=== PATIENT | female | born 1935 | race Caucasian/White ===

== ENCOUNTER 2021-12-25 15:57 | Emergency (ER) | payer MEDICARE, MEDICAID, SELFPAY ==
--- NOTE | ~2021-12-25 | XR_ITS ---
EXAMINATION: XR CHEST CLINICAL INFORMATION: Cough. COMPARISON: None TECHNIQUE: Frontal view of the chest was obtained. FINDINGS: Prominent cardiomediastinal silhouette. Left-sided pacer with leads projecting over the right ventricle and right atrium. Mitral annular calcifications. Atherosclerotic disease of the aortic arch. Central vasculature engorgement suggesting pulmonary hypertension. No focal airspace opacities, pleural effusions or pneumothorax. No acute osseous abnormalities. The visualized upper abdomen is within normal limits. XR/XR chest 1V IMPRESSION: Enlarged cardiomediastinal silhouette and central vasculature engorgement suggesting cardiomegaly and pulmonary hypertension. No focal airspace opacities. Clear pleural spaces.
--- NOTE | ~2021-12-25 | CT_ITS ---
EXAMINATION: CT ANGIOGRAM OF THE CHEST WITH AND WITHOUT CONTRAST (CT PULMONARY ANGIOGRAM FOR PE) CLINICAL INFORMATION: Shortness of breath and cough. COMPARISON: Chest radiograph from earlier today TECHNIQUE: Prior to contrast administration, noncontrast localization images were obtained. Subsequently, multidetector volumetric imaging was performed from the thoracic inlet to below the diaphragms following the administration of 57 mL Omnipaque 350 intravenous contrast. No contrast reaction reported Sagittal, coronal, and MIP oblique sagittal reformatted images were obtained on the CT workstation, uploaded to PACS, and reviewed. This CT examination was performed using dose optimization techniques as appropriate, variously including the following: *Automated exposure control *Adjustment of mA and/or kV according to patient size (this includes techniques or standardized protocols for targeted exams where dose is matched to indication/reason for exam; i.e. extremities or head) *Use of iterative reconstruction technique Total exam dose-length product 156 mGy-cm FINDINGS: QUALITY OF STUDY/CONTRAST BOLUS: Satisfactory. PULMONARY ARTERIES: No central or segmental pulmonary emboli. The central pulmonary arteries are enlarged suggesting pulmonary hypertension. THORACIC AORTA: Atherosclerotic disease. The ascending thoracic aorta measures 3.5 cm in diameter. LUNG: Evaluation of parenchymal details and pulmonary nodules is limited due to respiratory motion. There is mild bronchial wall thickening, more noticeable in the lower lobes. There are subsegmental atelectasis in the right lower lobe. No dense consolidation. The central airways are patent. No pulmonary mass. Calcified granulomas are noted. PLEURA: No pleural effusion or pneumothorax. MEDIASTINUM: Cardiomegaly. No pericardial effusion. Coronary calcifications. No bulky mediastinal or hilar lymphadenopathy. No evidence of septal bowing or right heart strain. CHEST WALL/AXILLA: Left-sided pacer. No chest wall mass. No axillary lymphadenopathy by size criteria. OSSEOUS STRUCTURES: No acute or suspicious osseous abnormality. Thoracic spondylosis. UPPER ABDOMEN: Cholelithiasis. No reflux of contrast into the hepatic veins to suggest elevated right heart pressures. CT/CT angio chest PE protocol IMPRESSION: 1. No evidence of pulmonary embolism. 2. Mild bronchial wall thickening suggesting an infectious or inflammatory process of the small airways such as bronchitis, reactive airways disease or atypical/viral infections. 3. No focal consolidation, pleural effusion or pneumothorax. 4. Cardiomegaly with findings suggesting pulmonary hypertension. Triple-vessel coronary calcifications are noted. 5. Cholelithiasis. No findings to suspect acute cholecystitis. VTE: negative
[2021-12-25 16:53] VITALS: BP 174/70; PULSE 75; RESP 20; TEMP 37.6; O2SAT 98; BMI 24.7
[2021-12-25 17:40] LABS: Influenza A PCR NEGATIVE (Negative); Influenza B PCR NEGATIVE (Negative); Resp Syncy Virus RNA Qual PCR NEGATIVE (Negative); SARS COV2 PCR INHOUSE NEGATIVE (Negative)
--- NOTE | 2021-12-25 18:39 | ECG_ITS ---
Test Reason : DYSPNEA Blood Pressure : / mmHG Vent. Rate : 083 BPM Atrial Rate : 083 BPM P-R Int : 220 ms QRS Dur : 192 ms QT Int : 464 ms P-R-T Axes : 078 -76 095 degrees QTc Int : 545 ms Atrial-sensed ventricular-paced rhythm with prolonged AV conduction with occasional Premature atrial complexes Abnormal ECG No previous ECGs available Referred By: Sil Aragon Electronically Signed By:COLIN AU MD
[2021-12-25 18:43] VITALS: BP 169/66; PULSE 81; RESP 16; TEMP 37.8; O2SAT 97
--- NOTE | 2021-12-25 18:57 | ED.URI ---
HPI - URI/Sore Throat General Chief Complaint: Upper Respiratory Symptoms Stated Complaint: Cough Time Seen by Provider: 12/25/21 18:28 Source: patient Mode of arrival: ambulatory Limitations: language barrier (indonesian ) History of Present Illness HPI Narrative: Patient is a 86-year-old female with a past medical history of hypertension, dementia, high cholesterol and a ICD presenting with a cough and fever x2 weeks. Patient is with daughter. Patient endorses a dry cough, low-grade fever, chest pain associated a cough, decreased appetite and some shortness of breath. She denies headache, vision changes, nausea, vomiting, diarrhea, constipation, leg swelling, or rashes. Daughter states that she was sick about 2 weeks ago with a similar cough though states she took and at home COVID test which was negative. Daughter states that she has been giving her mother fluids, cold medication, Robitussin and Tylenol to control her symptoms. Daughter also notes that her mother has been having a teary right eye worse in the morning. Family memeber RSV + at home. Of note patient is on aspirin. MD elicited complaint: fever and cough Onset (ago): week(s) (2) Consistency: intermittent Severity: mild Able to tolerate fluids by mouth: Yes Context: sick contacts Associated symptoms: fever, cough, chest pain, shortness of breath and other ( red eye) Treatments prior to arrival: acetaminophen and cold medicine Related Data Previous Rx's Medication Instructions Recorded albuterol sulfate 90 mcg/actuation 2 inh inhalation Q4-6H PRN 12/25/21 breath activated powder inhaler shortness of breath or wheezing #1 ea azithromycin 250 mg tablet See Rx Instructions PO .COMPLEX #6 12/25/21 tabs prednisone 20 mg tablet 20 mg PO DAILY 5 days #5 tabs 12/25/21 sulfacetamide sodium 10 % eye drops 1 drp ophthalmic (eye) Q4H #5 mL 12/25/21 Allergies Allergy/AdvReac Type Severity Reaction Status Date / Time diphenhydramine Allergy Unknown Verified 12/25/21 16:57 [From Benadryl] Penicillins Allergy Unknown Verified 12/25/21 16:57 Review of Systems Review of Systems: Constitutional : No Weight loss, + Fever, + Chills, + Fatigue, + Malaise ENT/Mouth : No Hearing loss, No Ear Pain, No Nasal Congestion, No Sinus Pain, No Hoarseness, No sore throat, No Rhinorrhea, No Swallowing Difficulty Eyes: No Eye Pain, No Swelling, + Redness, No Foreign Body, + Discharge, No Vision Changes Cardiovascular : + Chest Pain, + SOB, + Dyspnea on Exertion, No Orthopnea, No Edema, No Palpitations Respiratory : + Cough, No Sputum, No Wheezing, Gastrointestinal : No Nausea, No Vomiting, No Diarrhea, No Constipation, No abdominal Pain, No Hematochezia, No Melena Genitourinary : no irregular bleeding, No Dysuria, No Urinary Frequency, No Hematuria, No Urinary Incontinence, No Urgency, No Flank Pain, No Urinary Flow Changes, No Hesitancy Musculoskeletal : No joint pain, No Myalgias, No Joint Swelling Skin : No Skin Lesions, No rash Neuro : No Weakness, No Numbness, No Paresthesias, No Loss of Consciousness, No Dizziness, No Headache Heme/Lymph: No Bruising, No Bleeding,No Lymphadenopathy Yes all other systems are reviewed and are negative [facility] Past Medical History Attestation statement: The following information was validated with the patient. Source: old records reviewed and nursing notes reviewed Social History Social History Advance Directives: No Advance Directives Information Provided: Yes Physical Exam Vital Signs: Vital Signs: Last Vital Signs Temp 100.1 F 12/25/21 18:43 Pulse 81 12/25/21 18:43 Resp 16 12/25/21 18:43 BP 169/66 H 12/25/21 18:43 Pulse Ox 97 12/25/21 18:43 O2 Del Method 12/25/21 18:43 BMI result Body Mass Index 24.7 vss Appearance: Alert and Oriented. No acute distress. No accessory muscle use Head: Normal external exam. Normocephalic. Atraumatic. ? Eyes: PERRLA. Conjunctiva and sclera normal of left eye. right eye with conjunctival injection with slight. Eyel amount of clear discharge. B/l lids normal. ? ENT: Pharynx normal. Uvula midline. Moist mucous membranes. ? No trismus noted.? No drooling noted.? No muffled voice noted. TM visualized landmarks noted - no signs of infection no erythema. Neck: ?Soft full range of motion, no JVD. No meningeal signs CVS: ?Heart regular rate and rhythm + murmur (chronic and known). No tenderness to palpation of anterior chest wall. Respiratory: ? Upper left lobe noted to have wheezing though became clear after coughing. Breath sounds are clear to auscultation bilaterally. No wheezing or stridor.? No accessory muscle use noted. Abdomen: ?Soft nontender no rebound or guarding positive bowel sounds Skin: Skin warm and dry.? Normal skin color.? Normal skin turgor. Extremities: No lower extremity edema. ? Extremities exhibit normal range of motion.? Extremities nontender. Negative [place] bilaterally. Neuro: Alert and oriented X3.? No motor deficit.? No sensory deficit.? Reflexes normal. Course Reevaluation(s) Reevaluation #1: CBC significant for leukocytosis of 12.3, likely bronchitis. Chemistry with no acute electrolyte abnormalities requiring intervention. Patient's transaminases and alk-phos noted to be slightly elevated however no pain with palpation to abdomen. Troponin 15.7, 2nd troponin ordered for 22:00, patient not complaining of chest pain or shortness of breath, therefore low suspicion for ACS or PE. BNP elevated at 258 however no signs of fluid overload on exam or chest x-ray. No need for diuretics at this time. Flu/COVID/RSV negative. D-dimer positive therefore CTA was ordered to rule out PE. Chest x-ray within enlarged cardiomediastinal silhouette and central vasculature engorgement suggesting cardiomegaly and pulmonary hypertension. Patient educated on findings and family members well. Time: 19:15 Reevaluation #2: CTA with no signs of PE. Mild bronchial wall thickening again consistent with bronchitis. Patient educated on these findings. Repeat troponin pending. Time: 21:10 Reevaluation #3: Troponin not meeting delta criteria, patient not complaining of chest pain or shortness of breath. EKG signed by my attending, case was discussed with my attending who agrees with my treatment, diagnosis and plan. Patient's likely diagnosis bronchitis. Advised to return with new or worsening symptoms. At this time I feel comfortable discharge home. At time of discharge patient's vital signs stable, patient feeling well, no chest pain or shortness of breath, oxygen saturations stable even after movement and ambulation. At this time patient will be discharged home with strict return precautions. MDM - URI/Sore Throat MDM Narrative Medical decision making narrative: 184 86-year-old female presenting with 2 weeks of a cough and low-grade fever. Patient had a close sick contacts with a similar URI. Physical Exam significant for a murmur auscultated (chronic finding), upper left lobe wheezing auscultated though cleared with coughing, and a fever of 100.1. PERC score of 1. Will rule out ACS, PE. Although most likely upper viral respiratory infection or bronchitis. Plan: Routine lab work: BNP, CBC, SARs-COVID/ flu/ RSV, EKG, Blood cultures, D-dimer, Troponin, Lactic acid Medical Records Attestation: I reviewed the patient's medical records. Lab Data Attestation: I reviewed the patient's lab results. Result diagrams: 12/25/21 19:05 12/25/21 19:05 Labs: Lab Results 12/25/21 12/25/21 12/25/21 Range/Units 16:59 19:05 19:05 WBC 12.3 H (4.8-10.8) X10*3/uL RBC 4.37 (4.20-5.50) X10*6/uL Hgb 14.4 (12.0-16.0) g/dl Hct 41.8 (37.0-47.0) % MCV 95.7 (80.0-98.0) fL MCH 33.0 (27.0-33.0) pg MCHC 34.4 (31.0-35.0) g/dl RDW 14.1 (11.0-16.0) % Plt Count 190 (160-400) X10*3/uL MPV 11.2 (9.4-12.3) fL Immature Gran % (Auto) 0.3 (0.0-0.4) % Neut % (Auto) 71.8 (45-73) % Lymph % (Auto) 14.1 L (20-40) % [place] % (Auto) 9.0 (2-11) % Eos % (Auto) 4.4 H (0-4) % Baso % (Auto) 0.4 (0-2) % Lymph # (Auto) 1.7 (1.2-4.9) X10*3/uL [place] # (Auto) 1.1 (0.1-1.2) X10*3/uL Eos # (Auto) 0.5 H (0.0-0.4) X10*3/uL Baso # (Auto) 0.1 (0.0-0.2) X10*3/uL Abs Immat Gran (auto) 0.04 H (0.00-0.03) X10*3/uL Absolute Neuts (auto) 8.9 H (2.0-8.3) x10*3/uL Absolute Nucleated RBC 0.000 (0.0-0.012) X10*3/uL Nucleated RBC % (auto) 0.0 (0.0-0.2) /100WBC D-Dimer High Sensitivty NG/ML Sodium 138 (135-145) mmol/L Potassium 3.7 (3.3-5.1) mmol/L Chloride 97 (96-108) mmol/L Carbon Dioxide 29 (22-29) mmol/L Anion Gap 16 (12-20) BUN 10 (9-16) mg/dL Creatinine 0.91 (0.5-1.4) mg/dL Estim Creat Clear Calc 41.2 Estimated GFR 59 Random Glucose 128 H (60-115) mg/dL Lactic Acid (0.5-2.0) mmol/L Calcium 9.9 (8.4-10.2) mg/dL Total Bilirubin 0.9 (0.0-1.0) mg/dL AST 55 H (5-31) U/L ALT 53 H (0-31) U/L Alkaline Phosphatase 232 H (39-117) U/L Troponin I High Sens (<3.5-17.0) ng/L B-Natriuretic Peptide (<100) pg/mL Total Protein 7.8 (6.5-8.0) g/dL Albumin 4.3 (3.5-5.0) g/dL Urine Color Urine Appearance Urine pH (5.0-9.0) Ur Specific [place] (1.005-1.025) Urine Protein (Neg-Trace) mg/dL Urine Glucose (UA) (Negative) mg/dL Urine Ketones (Negative) mg/dL Urine Blood (Negative) Urine Nitrite (Negative) Ur Leukocyte Esterase (Negative) COVID-19 (VANESA) (Negative) COVID-19 Clin Com Influenza Type A (PCR) NEGATIVE (Negative) Influenza Type B (PCR) NEGATIVE (Negative) RSV RNA Qual (PCR) NEGATIVE (Negative) SARS-CoV-2 RNA (RT-PCR) NEGATIVE (Negative) 12/25/21 12/25/21 12/25/21 Range/Units 19:05 19:05 19:05 WBC (4.8-10.8) X10*3/uL RBC (4.20-5.50) X10*6/uL Hgb (12.0-16.0) g/dl Hct (37.0-47.0) % MCV (80.0-98.0) fL MCH (27.0-33.0) pg MCHC (31.0-35.0) g/dl RDW (11.0-16.0) % Plt Count (160-400) X10*3/uL MPV (9.4-12.3) fL Immature Gran % (Auto) (0.0-0.4) % Neut % (Auto) (45-73) % Lymph % (Auto) (20-40) % [place] % (Auto) (2-11) % Eos % (Auto) (0-4) % Baso % (Auto) (0-2) % Lymph # (Auto) (1.2-4.9) X10*3/uL [place] # (Auto) (0.1-1.2) X10*3/uL Eos # (Auto) (0.0-0.4) X10*3/uL Baso # (Auto) (0.0-0.2) X10*3/uL Abs Immat Gran (auto) (0.00-0.03) X10*3/uL Absolute Neuts (auto) (2.0-8.3) x10*3/uL Absolute Nucleated RBC (0.0-0.012) X10*3/uL Nucleated RBC % (auto) (0.0-0.2) /100WBC D-Dimer High Sensitivty 519 NG/ML Sodium (135-145) mmol/L Potassium (3.3-5.1) mmol/L Chloride (96-108) mmol/L Carbon Dioxide (22-29) mmol/L Anion Gap (12-20) BUN (9-16) mg/dL Creatinine (0.5-1.4) mg/dL Estim Creat Clear Calc Estimated GFR Random Glucose (60-115) mg/dL Lactic Acid (0.5-2.0) mmol/L Calcium (8.4-10.2) mg/dL Total Bilirubin (0.0-1.0) mg/dL AST (5-31) U/L ALT (0-31) U/L Alkaline Phosphatase (39-117) U/L Troponin I High Sens (<3.5-17.0) ng/L B-Natriuretic Peptide 258 H (<100) pg/mL Total Protein (6.5-8.0) g/dL Albumin (3.5-5.0) g/dL Urine Color Urine Appearance Urine pH (5.0-9.0) Ur Specific [place] (1.005-1.025) Urine Protein (Neg-Trace) mg/dL Urine Glucose (UA) (Negative) mg/dL Urine Ketones (Negative) mg/dL Urine Blood (Negative) Urine Nitrite (Negative) Ur Leukocyte Esterase (Negative) COVID-19 (VANESA) Negative (Negative) COVID-19 Clin Com See Note Influenza Type A (PCR) (Negative) Influenza Type B (PCR) (Negative) RSV RNA Qual (PCR) (Negative) SARS-CoV-2 RNA (RT-PCR) (Negative) 12/25/21 12/25/21 12/25/21 Range/Units 19:05 19:05 21:35 WBC (4.8-10.8) X10*3/uL RBC (4.20-5.50) X10*6/uL Hgb (12.0-16.0) g/dl Hct (37.0-47.0) % MCV (80.0-98.0) fL MCH (27.0-33.0) pg MCHC (31.0-35.0) g/dl RDW (11.0-16.0) % Plt Count (160-400) X10*3/uL MPV (9.4-12.3) fL Immature Gran % (Auto) (0.0-0.4) % Neut % (Auto) (45-73) % Lymph % (Auto) (20-40) % [place] % (Auto) (2-11) % Eos % (Auto) (0-4) % Baso % (Auto) (0-2) % Lymph # (Auto) (1.2-4.9) X10*3/uL [place] # (Auto) (0.1-1.2) X10*3/uL Eos # (Auto) (0.0-0.4) X10*3/uL Baso # (Auto) (0.0-0.2) X10*3/uL Abs Immat Gran (auto) (0.00-0.03) X10*3/uL Absolute Neuts (auto) (2.0-8.3) x10*3/uL Absolute Nucleated RBC (0.0-0.012) X10*3/uL Nucleated RBC % (auto) (0.0-0.2) /100WBC D-Dimer High Sensitivty NG/ML Sodium (135-145) mmol/L Potassium (3.3-5.1) mmol/L Chloride (96-108) mmol/L Carbon Dioxide (22-29) mmol/L Anion Gap (12-20) BUN (9-16) mg/dL Creatinine (0.5-1.4) mg/dL Estim Creat Clear Calc Estimated GFR Random Glucose (60-115) mg/dL Lactic Acid 1.1 (0.5-2.0) mmol/L Calcium (8.4-10.2) mg/dL Total Bilirubin (0.0-1.0) mg/dL AST (5-31) U/L ALT (0-31) U/L Alkaline Phosphatase (39-117) U/L Troponin I High Sens 15.7 22.3 H (<3.5-17.0) ng/L B-Natriuretic Peptide (<100) pg/mL Total Protein (6.5-8.0) g/dL Albumin (3.5-5.0) g/dL Urine Color Urine Appearance Urine pH (5.0-9.0) Ur Specific [place] (1.005-1.025) Urine Protein (Neg-Trace) mg/dL Urine Glucose (UA) (Negative) mg/dL Urine Ketones (Negative) mg/dL Urine Blood (Negative) Urine Nitrite (Negative) Ur Leukocyte Esterase (Negative) COVID-19 (VANESA) (Negative) COVID-19 Clin Com Influenza Type A (PCR) (Negative) Influenza Type B (PCR) (Negative) RSV RNA Qual (PCR) (Negative) SARS-CoV-2 RNA (RT-PCR) (Negative) 12/25/21 Range/Units 21:35 WBC (4.8-10.8) X10*3/uL RBC (4.20-5.50) X10*6/uL Hgb (12.0-16.0) g/dl Hct (37.0-47.0) % MCV (80.0-98.0) fL MCH (27.0-33.0) pg MCHC (31.0-35.0) g/dl RDW (11.0-16.0) % Plt Count (160-400) X10*3/uL MPV (9.4-12.3) fL Immature Gran % (Auto) (0.0-0.4) % Neut % (Auto) (45-73) % Lymph % (Auto) (20-40) % [place] % (Auto) (2-11) % Eos % (Auto) (0-4) % Baso % (Auto) (0-2) % Lymph # (Auto) (1.2-4.9) X10*3/uL [place] # (Auto) (0.1-1.2) X10*3/uL Eos # (Auto) (0.0-0.4) X10*3/uL Baso # (Auto) (0.0-0.2) X10*3/uL Abs Immat Gran (auto) (0.00-0.03) X10*3/uL Absolute Neuts (auto) (2.0-8.3) x10*3/uL Absolute Nucleated RBC (0.0-0.012) X10*3/uL Nucleated RBC % (auto) (0.0-0.2) /100WBC D-Dimer High Sensitivty NG/ML Sodium (135-145) mmol/L Potassium (3.3-5.1) mmol/L Chloride (96-108) mmol/L Carbon Dioxide (22-29) mmol/L Anion Gap (12-20) BUN (9-16) mg/dL Creatinine (0.5-1.4) mg/dL Estim Creat Clear Calc Estimated GFR Random Glucose (60-115) mg/dL Lactic Acid (0.5-2.0) mmol/L Calcium (8.4-10.2) mg/dL Total Bilirubin (0.0-1.0) mg/dL AST (5-31) U/L ALT (0-31) U/L Alkaline Phosphatase (39-117) U/L Troponin I High Sens (<3.5-17.0) ng/L B-Natriuretic Peptide (<100) pg/mL Total Protein (6.5-8.0) g/dL Albumin (3.5-5.0) g/dL Urine Color Yellow Urine Appearance Clear Urine pH 8.5 (5.0-9.0) Ur Specific [place] 1.025 (1.005-1.025) Urine Protein Negative (Neg-Trace) mg/dL Urine Glucose (UA) Negative (Negative) mg/dL Urine Ketones Negative (Negative) mg/dL Urine Blood Negative (Negative) Urine Nitrite Negative (Negative) Ur Leukocyte Esterase Negative (Negative) COVID-19 (VANESA) (Negative) COVID-19 Clin Com Influenza Type A (PCR) (Negative) Influenza Type B (PCR) (Negative) RSV RNA Qual (PCR) (Negative) SARS-CoV-2 RNA (RT-PCR) (Negative) Imaging Data Chest X-Ray : Radiologist's impression: FINDINGS: Prominent cardiomediastinal silhouette. Left-sided pacer with leads projecting over the right ventricle and right atrium. Mitral annular calcifications. Atherosclerotic disease of the aortic arch. Central vasculature engorgement suggesting pulmonary hypertension. No focal airspace opacities, pleural effusions or pneumothorax. No acute osseous abnormalities. The visualized upper abdomen is within normal limits. XR/XR chest 1V IMPRESSION: Enlarged cardiomediastinal silhouette and central vasculature engorgement suggesting cardiomegaly and pulmonary hypertension. No focal airspace opacities. Clear pleural spaces. ECG Data Attestation: I personally reviewed and interpreted this ECG as follows: ECG interpretation date: 12/25/21 ECG interpretation time: 22:10 Prior ECG tracings: available for review Interpretation: Ventricular rate of 83, FL normal, QRS normal, QT/QTC normal. EKG with atrial sensed ventricular paced rhythm with prolonged AV conduction, no ST elevations or inversions concerning for ischemia. No previous EKGs to compare with. Critical Care Time Critical Care Time Critical Care Time: No Discharge Plan Discharge Clinical Impression: Bronchitis, Acute viral conjunctivitis Patient Disposition: Home, Self-Care Instructions: Acute Bronchitis (ED) Additional Instructions: Take your medications as prescribed. If you were prescribed antibiotics today, it is important that you take your medication to their entirety, do not skip any doses, do not finish them early. Follow-up with your primary care provider this week. Return to the emergency department with new or worsening symptoms. Such as fevers, chills, chest pain, shortness of breath, nausea, vomiting, dizziness, headache, vision changes, lethargy In case of emergency call 911 ?XR/XR chest 1V IMPRESSION: Enlarged cardiomediastinal silhouette and central vasculature engorgement suggesting cardiomegaly and pulmonary hypertension. ? No focal airspace opacities. Clear pleural spaces. ? Prescriptions: New sulfacetamide sodium 10 % drops 1 drp ophthalmic (eye) Q4H Qty: 5 0RF azithromycin 250 mg tablet See Rx Instructions .ROUTE .COMPLEX Qty: 6 0RF Rx Instructions: For 250 mg dose pack: take 500 mg today (day 1), then 250 mg for 4 days (days 2-5) prednisone 20 mg tablet 20 mg PO DAILY 5 Days Qty: 5 0RF albuterol sulfate 90 mcg/actuation aerosol powdr breath activated 2 inh inhalation Q4-6H PRN (Reason: shortness of breath or wheezing) Qty: 1 0RF Referrals: Physician,Unknown J [Primary Care Provider] - 2 days
[2021-12-25 19:12] LABS: MANUAL DIFF FLAG NO
[2021-12-25 19:13] LABS: Basophils Absolute Auto 0.1 X10*3/uL (0.0-0.2); Basophils Percent Auto 0.4 % (0-2); Eosinophils Absolute Auto 0.5 X10*3/uL (0.0-0.4); Eosinophils Percent Auto 4.4 % (0-4); Hematocrit 41.8 % (37.0-47.0); Hemoglobin 14.4 g/dl (12.0-16.0); Imm Gran Abs Auto 0.04 X10*3/uL (0.00-0.03); Imm Gran Pct Auto 0.3 % (0.0-0.4); Lymphocytes Absolute Auto 1.7 X10*3/uL (1.2-4.9); Lymphocytes Percent Auto 14.1 % (20-40); Mean Corpuscular HGB Conc 34.4 g/dl (31.0-35.0); Mean Corpuscular Volume 95.7 fL (80.0-98.0); Mean Platelet Volume 11.2 fL (9.4-12.3); Monocytes Absolute Auto 1.1 X10*3/uL (0.1-1.2); Neutrophils Absolute Auto 8.9 x10*3/uL (2.0-8.3); Neutrophils Percent Auto 71.8 % (45-73); Platelet Count 190 X10*3/uL (160-400); Red Blood Count 4.37 X10*6/uL (4.20-5.50); Red Cell Distribution Width 14.1 % (11.0-16.0); White Blood Count 12.3 X10*3/uL (4.8-10.8)
[2021-12-25 19:25] LABS: Lactic Acid 1.1 mmol/L (0.5-2.0)
[2021-12-25 19:28] LABS: Alanine Aminotransferase 53 U/L (0-31); Albumin Level 4.3 g/dL (3.5-5.0); Alkaline Phosphatase 232 U/L (39-117); Anion Gap 16 (12-20); Aspartate Amino Transferase 55 U/L (5-31); Bilirubin Total 0.9 mg/dL (0.0-1.0); Blood Urea Nitrogen 10 mg/dL (9-16); Calcium 9.9 mg/dL (8.4-10.2); Carbon Dioxide 29 mmol/L (22-29); Chloride 97 mmol/L (96-108); Creatinine Clr Calc Pharmacy 41.2; Estimated Glomerular Filt Rate 59; Glucose Random 128 mg/dL (60-115); Potassium 3.7 mmol/L (3.3-5.1); Sodium 138 mmol/L (135-145); Total Protein 7.8 g/dL (6.5-8.0)
[2021-12-25 19:31] LABS: COVID-19 Test Negative (Negative); IDNOW Serial# 16C4AD1C
[2021-12-25 19:32] LABS: B Type Natriuretic Peptide 258 pg/mL (<100)
[2021-12-25 19:33] LABS: D Dimer High Sensitivity 519 NG/ML; Troponin-I High Sensitivity 15.7 ng/L (<3.5-17.0)
[2021-12-25] MEDS: iohexoL 350 MG/ML 100 ML INFUS..BTL IV (20:24)
[2021-12-25 21:42] LABS: Appearance Urine Clear; Color Urine Yellow; Glucose Urine UA Negative (Negative); Leukocyte Esterase Urine Negative (Negative); Nitrite Urine Negative (Negative); PH 8.5 (5.0-9.0); Specific Gravity - Urine 1.025 (1.005-1.025); Urine Blood Negative (Negative); Urine Ketones Negative (Negative); Urine Protein Negative (Neg-Trace)
[2021-12-25] MEDS: Acetaminophen 325 MG TABLET 975 MG PO (21:50)
[2021-12-25 22:00] LABS: Troponin-I High Sensitivity 22.3 ng/L (<3.5-17.0)
== END 2021-12-25 22:20 | disposition home or self-care (01) ==
PROVIDERS: Physician Assistant; Emergency Provider Internal Medicine
DX: J40 Bronchitis, not specified as acute or chronic (principal); H10.31 Unspecified acute conjunctivitis, right eye; Z20.822 Contact with and (suspected) exposure to COVID-19; R50.9 Fever, unspecified; R06.02 Shortness of breath; F03.90 Unspecified dementia, unspecified severity, without behavioral disturbance, psychotic disturbance, mood disturbance, and anxiety; E78.00 Pure hypercholesterolemia, unspecified
CPT/HCPCS: 0241U; 36415; 71045; 71275; 80053; 81003; 83605; 83880; 84484; 85025; 85379; 87040; 87635; 93005; 99284; Q9967